=== PATIENT | male | born 1985 | race Caucasian/White ===

== ENCOUNTER 2016-05-09 05:04 | Emergency (ER) | payer MEDICAID, OTHER ==
[~2016-05-09] VITALS: Ht 172.7 cm; Wt 92.0 kg
[2016-05-09 05:10] VITALS: Ht 172.7 cm; Wt 92.0 kg
[2016-05-09] MEDS ORDERED: KETOROLAC 30 MG INJ IV STA (06:23)
[2016-05-09] MEDS ORDERED: ONDANSETRON 4 MG INJ IV STA (06:23)
[2016-05-09] MEDS ORDERED: SOD CHLORIDE 0.9% 1,000 ML IV STA (06:23)
--- NOTE | 2016-05-09 06:45 | ERD ---
ER Documentation Chief Complaint Date/Time DATE: 05/09/16 TIME: 06:44 Chief Complaint Flank pain sice 1700. pelvic pain dysuria and hematuria HPI 30-year-old male with history of kidney stones 5 years ago comes in with right- sided flank pain that was sudden and sharp around 5 AM. He states that it radiates to his right lower quadrant, associated with blood in his urine. He states that there is some difficulty when he tries to avoid, no burning with urination. He denies fevers or chills, vomiting. He reports mild nausea. ROS All systems reviewed and are negative except as per history of present illness. Medications Home Meds Active Scripts Tamsulosin Hcl* (Flomax*) 0.4 Mg Cap.er.24h, 0.4 MG PO BID, #30 CAP Prov:TERESA BAUTISTA PA-C 05/09/16 Hydrocodone/Acetaminophen ([place] 5-325 Tablet) 1 Each Tablet, 1 TAB PO Q6H Y for PAIN, #7 TAB Prov:TERESA BAUTISTA PA-C 05/09/16 Ondansetron (Ondansetron Odt) 4 Mg Tab.rapdis, 4 MG PO Q6H Y for NAUSEA AND/OR VOMITING, #10 TAB Prov:TERESA BAUTISTA PA-C 05/09/16 Ibuprofen* (Motrin*) 600 Mg Tab, 600 MG PO Q6, #30 TAB Prov:TERESA BAUTISTA PA-C 05/09/16 Allergies Allergies: Coded Allergies: Penicillins (Verified Allergy, Unknown, 05/09/16) PMhx/Soc Medical and Surgical Hx: pt denies Medical Hx, pt denies Surgical Hx History of Surgery: Yes (Appendectomy) Anesthesia Reaction: No Hx Neurological Disorder: No Hx Respiratory Disorders: No Hx Cardiac Disorders: No Hx Psychiatric Problems: No Hx Miscellaneous Medical Probl: No Hx Alcohol Use: Yes Hx Substance Use: Yes (THC smoke) Hx Tobacco Use: No Physical Exam Vitals Vital Signs Date Time Temp Pulse Resp B/P Pulse Ox O2 Delivery O2 Flow Rate FiO2 05/09/16 05:10 96.8 61 20 132/76 98 Physical Exam Const: [] Head: Atraumatic Eyes: Normal Conjunctiva ENT: Normal External Ears, Nose and Mouth. Neck: Full range of motion..~ No meningismus. Resp: Clear to auscultation bilaterally Cardio: Regular rate and rhythm, no murmurs Abd: Soft, non tender, non distended. Normal bowel sounds Skin: No petechiae or rashes Back: No midline or flank tenderness Ext: No cyanosis, or edema Neur: Awake and alert Psych: Normal Mood and Affect Result Diagram: 05/09/16 0700 05/09/16 0700 Results 24 hrs Laboratory Tests Test 05/09/16 07:00 White Blood Count 11.810^3/ul Red Blood Count 5.3310^6/ul Hemoglobin 15.9g/dl Hematocrit 48.1% Mean Corpuscular Volume 90.2fl Mean Corpuscular Hemoglobin 29.8pg Mean Corpuscular Hemoglobin Concent 33.1g/dl Red Cell Distribution Width 11.9% Platelet Count 80103^3/UL Mean Platelet Volume 10.8fl Neutrophils % 74.5% Lymphocytes % 19.4% Monocytes % 4.8% Eosinophils % 0.5% Basophils % 0.4% Nucleated Red Blood Cells % 0.0/100WBC Neutrophils # 8.810^3/ul Lymphocytes # 2.310^3/ul Monocytes # 0.610^3/ul Eosinophils # 0.110^3/ul Basophils # 0.110^3/ul Nucleated Red Blood Cells # 0.010^3/ul Urine Color LT. YELLOW Urine Clarity CLOUDY Urine pH 7.0 Urine Specific [place] 1.020 Urine Ketones NEGATIVE Urine Nitrite NEGATIVE Urine Bilirubin NEGATIVE Urine Urobilinogen 0.2 E.U./dL Urine Leukocyte Esterase NEGATIVE Urine Microscopic RBC 25-50/HPF Urine Microscopic WBC 2-5/HPF Urine Bacteria MODERATE Urine Hemoglobin 3+ Urine Glucose NEGATIVE% Urine Total Protein NEGATIVE Sodium Level 145mmol/L Potassium Level 4.3mmol/L Chloride Level 103mmol/L Carbon Dioxide Level 30mmol/L Anion Gap 16 Blood Urea Nitrogen 11mg/dl Creatinine 0.93mg/dl Glucose Level 110mg/dl Calcium Level 9.2mg/dl Total Bilirubin 0.1mg/dl Direct Bilirubin 0.00mg/dl Indirect Bilirubin 0.1mg/dl Aspartate Amino Transf (AST/SGOT) 15IU/L Alanine Aminotransferase (ALT/SGPT) 24IU/L Alkaline Phosphatase 56IU/L Total Protein 7.3g/dl Albumin 4.4g/dl Globulin 2.90g/dl Albumin/Globulin Ratio 1.51 Lipase 107U/L Current Medications Medications (Trade) Dose Ordered Sig/Marilee Route PRN Reason Start Time Stop Time Status Last Admin Dose Admin Sodium Chloride (NS) 1,000 ml @ 1,000 mls/hr Q1H STAT IV 05/09/16 06:23 05/09/16 07:22 DC 05/09/16 06:59 Ondansetron HCl (Zofran Inj) 4 mg ONCE STAT IV 05/09/16 06:23 05/09/16 06:25 DC 05/09/16 06:59 Ketorolac Tromethamine (Toradol) 30 mg ONCE STAT IV 05/09/16 06:23 05/09/16 06:25 DC 05/09/16 07:00 PROCEDURE: CT of the abdomen and pelvis without contrast CLINICAL INDICATION: Right flank pain. TECHNIQUE: Spiral CT images through the abdomen and pelvis without the use of contrast. The administered radiation dose is CTDI 16.67 and DLP 1052.45. One or more of the following dose reduction techniques were used: automated exposure control, adjustment of the mA and/or kV according to patient size, or use of iterative reconstruction technique. COMPARISON: None FINDINGS: Lack of oral and intravenous contrast somewhat limits evaluation. Slight dependent atelectasis of the lung bases is seen. No pleural effusion is seen. Minimal nonspecific ground-glass opacity of the lung bases. The liver, spleen, adrenals, and pancreas are unremarkable in appearance. The renal papillae are hyperdense bilaterally, consistent with dehydration or submillimeter stones. Tiny right renal cortical cyst is seen. A tiny 1 mm nonobstructing mid left kidney stone is seen. There is minimal right pelvicaliectasis. There is periureteric stranding about the proximal right ureter to the level of a 3 mm right ureter stone at the L4 level. No other stones are seen in either ureter or within the urinary bladder. The appendix is not seen. Multiple clips are seen adjacent to the cecum which may be from prior appendectomy.. The bladder and prostate are unremarkable in appearance. There is no evidence for diverticulitis. Calcified left lower quadrant node. There is no evidence for bowel obstruction, free air, or abscess. The aorta is normal in caliber. Minimal degenerative change of the spine. Small probable bone island of the right hip. IMPRESSION: 3 mm right ureter stone at the L4 level with mild periureteric stranding and minimal right pelvicaliectasis. Dense renal papillae consistent with dehydration or 7 mm stones and single tiny nonobstructing left renal stone.. RPTAT: HLBE Physician Vimal Date Time Electronically viewed and signed by Ana Simpson Physician on 05/09/2016 07 :32 Procedures/MDM ED course: Patient had an IV line established, blood and urine were obtained. He was given Toradol 30 mg and Zofran 4 mg IV. The patient's abdominal pain was reexamined. Patient was sitting comfortably with improved pain. Patient was not in any distress. MDM: 30-year-old male comes in with right-sided flank pain starting this morning , consistent with his presentation, CT scan showed a kidney stone that was 3 mm on the right side. Patient's workup including labs as well as the urine. He does not show evidence of renal insufficiency or infection. No evidence of gallstones, acute hepatobiliary process. Patient has a history of prior appendectomy consistent with the clips that were seen on the CT scan. He was given ER return precautions, given his history of recurrent kidney stones, I advised that the patient can further benefit from a urology reevaluation within the next week. Departure Diagnosis: Primary Impression: Kidney stones Condition: Good TERESA BAUTISTA PA-C May 09, 2016 06:45
[2016-05-09 07:03] LABS: ADD SCAN DIFF NO
[2016-05-09 07:07] LABS: ADD UMIC YES; URINE BILIRUBIN (Dip) NEGATIVE (NEGATIVE); URINE BLOOD (Dip) 3+ (NEGATIVE); URINE COLOR LT. YELLOW (YELLOW); URINE GLUCOSE (Dip) NEGATIVE (NEGATIVE); URINE KETONES (Dip) NEGATIVE (NEGATIVE); URINE LEUKOCYTE ESTERASE (Dip) NEGATIVE (NEGATIVE); URINE NITRITE (Dip) NEGATIVE (NEGATIVE); URINE TOTAL PROTEIN (Dip) NEGATIVE (NEGATIVE); URINE UROBILINOGEN (Dip) 0.2 E.U./dL (0.1-1.0)
[2016-05-09 07:08] LABS: BASOPHIL # 0.1 10^3/ul (0.0-0.1); BASOPHILS % 0.4 % (0.0-2.0); EOSINOPHILS # 0.1 10^3/ul (0.0-0.5); EOSINOPHILS % 0.5 % (0.0-7.0); HEMATOCRIT 48.1 % (42.0-52.0); HEMOGLOBIN 15.9 g/dl (14.0-18.0); LYMPHOCYTES # 2.3 10^3/ul (0.8-2.9); LYMPHOCYTES % 19.4 % (15.0-51.0); MEAN CORPUSCULAR HEMOGLOBIN 29.8 pg (29.0-33.0); MEAN CORPUSCULAR HGB CONC 33.1 g/dl (32.0-37.0); MEAN CORPUSCULAR VOLUME 90.2 fl (82.0-101.0); MEAN PLATELET VOLUME 10.8 fl (7.4-10.4); MONOCYTE # 0.6 10^3/ul (0.3-0.9); MONOCYTES % 4.8 % (0.0-11.0); NEUTROPHIL # 8.8 10^3/ul (1.6-7.5); NEUTROPHILS % 74.5 % (39.0-77.0); PLATELET COUNT 213 10^3/UL (140-415); RED BLOOD COUNT 5.33 10^6/ul (4.70-6.10); RED CELL DISTRIBUTION WIDTH 11.9 % (11.5-14.5); WHITE BLOOD COUNT 11.8 10^3/ul (4.8-10.8)
[2016-05-09 07:15] LABS: ALBUMIN 4.4 g/dl (3.3-4.9)
[2016-05-09 07:16] LABS: POTASSIUM 4.3 mmol/L (3.5-5.1)
[2016-05-09 07:18] LABS: ALBUMIN/GLOBULIN RATIO 1.51; BILIRUBIN,INDIRECT 0.1 mg/dl (0-1.1); BILIRUBIN,TOTAL 0.1 mg/dl (0.2-1.3); CALCIUM 9.2 mg/dl (8.4-10.2); CREATININE 0.93 mg/dl (0.61-1.24); TOTAL PROTEIN 7.3 g/dl (6.1-8.1)
[2016-05-09 07:28] LABS: BACTERIA,URINE MODERATE; URINE RBCS 25-50 /HPF (0)
--- NOTE | 2016-05-09 07:32 | RADRPT ---
PROCEDURE: CT of the abdomen and pelvis without contrast CLINICAL INDICATION: Right flank pain. TECHNIQUE: Spiral CT images through the abdomen and pelvis without the use of contrast. The admin istered radiation dose is CTDI 16.67 and DLP 1052.45. One or more of the following dose reduction t echniques were used: automated exposure control, adjustment of the mA and/or kV according to patient size, or use of iterative reconstruction technique. COMPARISON: None FINDINGS: Lack of oral and intravenous contrast somewhat limits evaluation. Slight dependent atelectasis of the lung bases is seen. No pleural effusion is seen. Minimal nonspecific ground-glass opacity of t he lung bases. The liver, spleen, adrenals, and pancreas are unremarkable in appearance. The renal papillae are hy perdense bilaterally, consistent with dehydration or submillimeter stones. Tiny right renal cortica l cyst is seen. A tiny 1 mm nonobstructing mid left kidney stone is seen. There is minimal right p elvicaliectasis. There is periureteric stranding about the proximal right ureter to the level of a 3 mm right ureter stone at the L4 level. No other stones are seen in either ureter or within the ur inary bladder. The appendix is not seen. Multiple clips are seen adjacent to the cecum which may b e from prior appendectomy.. The bladder and prostate are unremarkable in appearance. There is no ev idence for diverticulitis. Calcified left lower quadrant node. There is no evidence for bowel obst ruction, free air, or abscess. The aorta is normal in caliber. Minimal degenerative change of the spine. Small probable bone island of the right hip. IMPRESSION: 3 mm right ureter stone at the L4 level with mild periureteric stranding and minimal right pelvicali ectasis. Dense renal papillae consistent with dehydration or 7 mm stones and single tiny nonobstruc ting left renal stone.. RPTAT: HLBE Physician Vimal Date Time Electronically viewed and signed by Ana Simpson Physician on 05/09/2016 07:32 LE/
[2016-05-09] MEDS ORDERED: IBUP-1542 PO (07:58)
[2016-05-09] MEDS ORDERED: HYDR-906 PO (07:58)
[2016-05-09] MEDS ORDERED: ONDA4TAB14 PO (07:58)
[2016-05-09] MEDS ORDERED: TAMS-14 PO (07:58)
== END 2016-05-09 08:16 | disposition home or self-care (01) ==
LOC: FTE 05:04
DX: N20.0 Calculus of kidney (principal); R11.0 Nausea
CPT/HCPCS: 36415; 74176; 80053; 81001; 83690; 85025; 96374; 96375; J1885; J2405; J7030; Z7502; 81003

== ENCOUNTER 2016-05-11 00:25 | Emergency (ER) | payer MEDICAID ==
[~2016-05-11] VITALS: Ht 172.7 cm; Wt 96.0 kg
[~2016-05-11 00:25] MED LIST: HYDR-906 PO; IBUP-1542 PO; ONDA4TAB14 PO; TAMS-14 PO
[2016-05-11 00:28] VITALS: Ht 172.7 cm; Wt 96.0 kg
[2016-05-11] MEDS ORDERED: morphine 4 MG/ML VIAL IV STA (01:53)
[2016-05-11] MEDS ORDERED: KETOROLAC 30 MG INJ IV STA (01:53)
[2016-05-11] MEDS ORDERED: SOD CHLORIDE 0.9% 1,000 ML IV STA (01:53)
[2016-05-11] MEDS ORDERED: ONDANSETRON 4 MG INJ IV STA (01:53)
[2016-05-11 02:27] LABS: ADD SCAN DIFF NO
[2016-05-11 02:33] LABS: BASOPHIL # 0.1 10^3/ul (0.0-0.1); BASOPHILS % 0.5 % (0.0-2.0); EOSINOPHILS # 0.2 10^3/ul (0.0-0.5); EOSINOPHILS % 1.9 % (0.0-7.0); HEMATOCRIT 44.2 % (42.0-52.0); HEMOGLOBIN 14.5 g/dl (14.0-18.0); LYMPHOCYTES # 3.4 10^3/ul (0.8-2.9); LYMPHOCYTES % 32.9 % (15.0-51.0); MEAN CORPUSCULAR HEMOGLOBIN 30.1 pg (29.0-33.0); MEAN CORPUSCULAR HGB CONC 32.8 g/dl (32.0-37.0); MEAN CORPUSCULAR VOLUME 91.7 fl (82.0-101.0); MEAN PLATELET VOLUME 11.2 fl (7.4-10.4); MONOCYTE # 0.8 10^3/ul (0.3-0.9); MONOCYTES % 7.8 % (0.0-11.0); NEUTROPHIL # 5.8 10^3/ul (1.6-7.5); NEUTROPHILS % 56.6 % (39.0-77.0); PLATELET COUNT 201 10^3/UL (140-415); RED BLOOD COUNT 4.82 10^6/ul (4.70-6.10); WHITE BLOOD COUNT 10.2 10^3/ul (4.8-10.8)
[2016-05-11 02:36] LABS: ADD UMIC YES; URINE BILIRUBIN (Dip) NEGATIVE (NEGATIVE); URINE BLOOD (Dip) 3+ (NEGATIVE); URINE COLOR LT. YELLOW (YELLOW); URINE GLUCOSE (Dip) NEGATIVE (NEGATIVE); URINE KETONES (Dip) NEGATIVE (NEGATIVE); URINE LEUKOCYTE ESTERASE (Dip) NEGATIVE (NEGATIVE); URINE NITRITE (Dip) NEGATIVE (NEGATIVE); URINE TOTAL PROTEIN (Dip) TRACE (NEGATIVE); URINE UROBILINOGEN (Dip) 0.2 E.U./dL (0.1-1.0)
[2016-05-11 02:44] LABS: POTASSIUM 4.2 mmol/L (3.5-5.1)
[2016-05-11 02:47] LABS: CREATININE 0.87 mg/dl (0.61-1.24)
[2016-05-11 02:48] LABS: CALCIUM 9.1 mg/dl (8.4-10.2)
[2016-05-11 02:53] LABS: SQUAMOUS EPITHELIAL CELL,UR MANY; URINE RBCS >50 /HPF (0)
[2016-05-11 02:54] LABS: BACTERIA,URINE FEW
--- NOTE | 2016-05-11 03:02 | ERD ---
ER Documentation Chief Complaint Date/Time DATE: 05/11/16 TIME: 03:01 Chief Complaint right flank pain HPI 30-year-old male comes in with right-sided flank pain, was recently seen and evaluated by me 2 days ago for kidney stone and states that he has pain after running out of his medication. Patient states that he has been able to have normal urinary output and denies any hematuria, dysuria, urgency or frequency. He denies fevers or chills. Previously he was vomiting but states that he no longer reports nausea. His pain is in the right flank, sharp, intermittent. He has an appointment to see a urologist on Friday, and is here for pain medication until his appointment. ROS All systems reviewed and are negative except as per history of present illness. Medications Home Meds Active Scripts Sulfamethoxazole-Trimethoprim* (Bactrim* DS) 800-160 Mg Tab, 1 TAB PO BID for 5 Days, TAB Prov:TERESA BAUTISTA PA-C 05/11/16 Ibuprofen* (Motrin*) 600 Mg Tab, 600 MG PO Q6, #30 TAB Prov:TERESA BAUTISTA PA-C 05/11/16 Hydrocodone/Acetaminophen ([place] 5-325 Tablet) 1 Each Tablet, 1 TAB PO Q6H Y for PAIN, #20 TAB Prov:TERESA BAUTISTA PA-C 05/11/16 Tamsulosin Hcl* (Flomax*) 0.4 Mg Cap.er.24h, 0.4 MG PO BID, #30 CAP Prov:TERESA BAUTISTA PA-C 05/09/16 Hydrocodone/Acetaminophen ([place] 5-325 Tablet) 1 Each Tablet, 1 TAB PO Q6H Y for PAIN, #7 TAB Prov:TERESA BAUTISTA PA-C 05/09/16 Ondansetron (Ondansetron Odt) 4 Mg Tab.rapdis, 4 MG PO Q6H Y for NAUSEA AND/OR VOMITING, #10 TAB Prov:TERESA BAUTISTA PA-C 05/09/16 Ibuprofen* (Motrin*) 600 Mg Tab, 600 MG PO Q6, #30 TAB Prov:TERESA BAUTISTA PA-C 05/09/16 Allergies Allergies: Coded Allergies: Penicillins (Verified Allergy, Unknown, 05/09/16) PMhx/Soc History of Surgery: Yes (Appendectomy) Anesthesia Reaction: No Hx Neurological Disorder: No Hx Respiratory Disorders: No Hx Cardiac Disorders: No Hx Psychiatric Problems: No Hx Miscellaneous Medical Probl: Yes (kidney stones) Hx Alcohol Use: Yes Hx Substance Use: Yes (THC smoke) Hx Tobacco Use: Yes Smoking Status: Light tobacco smoker Physical Exam Vitals Vital Signs Date Time Temp Pulse Resp B/P Pulse Ox O2 Delivery O2 Flow Rate FiO2 05/11/16 00:28 97.8 87 20 134/80 100 Physical Exam General: Well-developed, well-nourished. The patient appears in no acute distress. HEENT: Head is normocephalic, atraumatic. No scleral icterus. Neck: Supple. Nontender. Lungs: Clear to auscultation. Normal air movement. Heart: Regular rate and rhythm. S1 and S2 are normal. No murmurs, gallops, or rubs. Abdomen: Soft, nontender, nondistended. Bowel sounds are normoactive. Extremities: No clubbing or cyanosis. Normal pulses. Moving extremities x 4. No weakness. Neurologic: Alert and oriented 3. No focal deficits. Skin: Normal turgor. No rash or lesions. Result Diagram: 05/11/16 0216 05/11/16 0216 Results 24 hrs Laboratory Tests Test 05/11/16 02:16 White Blood Count 10.210^3/ul Red Blood Count 4.8210^6/ul Hemoglobin 14.5g/dl Hematocrit 44.2% Mean Corpuscular Volume 91.7fl Mean Corpuscular Hemoglobin 30.1pg Mean Corpuscular Hemoglobin Concent 32.8g/dl Red Cell Distribution Width 12.0% Platelet Count 16340^3/UL Mean Platelet Volume 11.2fl Neutrophils % 56.6% Lymphocytes % 32.9% Monocytes % 7.8% Eosinophils % 1.9% Basophils % 0.5% Nucleated Red Blood Cells % 0.0/100WBC Neutrophils # 5.810^3/ul Lymphocytes # 3.410^3/ul Monocytes # 0.810^3/ul Eosinophils # 0.210^3/ul Basophils # 0.110^3/ul Nucleated Red Blood Cells # 0.010^3/ul Urine Color LT. YELLOW Urine Clarity CLOUDY Urine pH 6.0 Urine Specific [place] 1.025 Urine Ketones NEGATIVE Urine Nitrite NEGATIVE Urine Bilirubin NEGATIVE Urine Urobilinogen 0.2 E.U./dL Urine Leukocyte Esterase NEGATIVE Urine Microscopic RBC >50/HPF Urine Microscopic WBC 0-2/HPF Urine Squamous Epithelial Cells MANY Urine Amorphous Urates MANY Urine Bacteria FEW Urine Hemoglobin 3+ Urine Glucose NEGATIVE% Urine Total Protein TRACE Sodium Level 142mmol/L Potassium Level 4.2mmol/L Chloride Level 102mmol/L Carbon Dioxide Level 29mmol/L Anion Gap 15 Blood Urea Nitrogen 14mg/dl Creatinine 0.87mg/dl Glucose Level 85mg/dl Calcium Level 9.1mg/dl Current Medications Medications (Trade) Dose Ordered Sig/Marilee Route PRN Reason Start Time Stop Time Status Last Admin Dose Admin Sodium Chloride (NS) 1,000 ml @ 1,000 mls/hr Q1H STAT IV 05/11/16 01:53 05/11/16 02:52 DC 05/11/16 02:23 Morphine Sulfate (morphine) 4 mg ONCE STAT IV 05/11/16 01:53 05/11/16 01:54 DC 05/11/16 02:23 Ondansetron HCl (Zofran Inj) 4 mg ONCE STAT IV 05/11/16 01:53 05/11/16 01:54 DC 05/11/16 02:22 Ketorolac Tromethamine (Toradol) 30 mg ONCE STAT IV 05/11/16 01:53 05/11/16 01:54 DC 05/11/16 02:22 Procedures/MDM ED course: Patient was given fluid bolus of normal saline 1 L, morphine 4 mg, Toradol 30 mg , Zofran 4 mg IV. Blood and urine were obtained. The patient's abdominal pain was reexamined. Patient was sitting comfortably with improved pain. Patient was not in any distress. MDM: 30-year-old male presents with ureteral colic, comes in for pain control secondary to history of kidney stone recently diagnosed on CT scan 2 days ago. This patient's pain was controlled with morphine, Toradol in the emergency department. His labs are reviewed, there is no leukocytosis, acute kidney injury or signs of infection. Patient states that his follow-up with a urologist is on Friday, I believe it is reasonable to continue his pain medications including [place] and ibuprofen until Friday so he will be able to have pain control at home until he sees a urologist. Departure Diagnosis: Primary Impression: Kidney stone Condition: TERESA Flood PA-C May 11, 2016 03:02
[2016-05-11] MEDS ORDERED: HYDR-906 PO (03:05)
[2016-05-11] MEDS ORDERED: IBUP-1542 PO (03:06)
[2016-05-11] MEDS ORDERED: BACTDS PO (03:09)
[2016-05-11 03:21] VITALS: BP 101/55; PULSE 57; RESP 18; TEMP 97.7
== END 2016-05-11 03:30 | disposition home or self-care (01) ==
LOC: FTE 00:25
DX: N20.0 Calculus of kidney (principal)
CPT/HCPCS: 36415; 80048; 81001; 85025; 96374; 96375; J1885; J2270; J2405; J7030; Z7502; 81003

== ENCOUNTER 2016-05-14 00:34 | Emergency (ER) | payer MEDICAID ==
[~2016-05-14] VITALS: Ht 177.8 cm; Wt 92.0 kg
[~2016-05-14 00:34] MED LIST changes: +BACTDS PO
[2016-05-14 00:36] VITALS: Ht 177.8 cm; Wt 92.0 kg
[2016-05-14] MEDS ORDERED: ONDANSETRON (ODT) 4 MG TAB ODT STA (01:51)
[2016-05-14 01:59] LABS: URINE BLOOD (Dip) POC 3+ (NEGATIVE)
[2016-05-14] MEDS ORDERED: PHENAZOPYRIDINE 100 MG TAB PO ONE (02:00)
[2016-05-14] MEDS ORDERED: morphine 10 MG INJ IM ONE (02:00)
[2016-05-14] MEDS ORDERED: PHEN-538 PO (02:05)
--- NOTE | 2016-05-14 02:05 | ERD ---
ER Documentation Chief Complaint Date/Time DATE: 05/14/16 TIME: 02:02 Chief Complaint right flank pain on and off x 1 week HPI 30-year-old male presents here in emergency department for continuous right flank pain for one week now, patient was seen here twice in the last 5 days for renal colic, patient has a kidney stone in the ureter, patient denies any fever or chills. Patient has an appointment with urology specialist in 2 days, patient has been taking Vanderbilt for pain with only mild relief. Patient denies any nausea or vomiting. Patient denies sadiq hematuria. Patient denies any dizziness. She denies any abdominal pain at this time. Patient describes the right flank pain as sharp pain, 8/10 scale, is worse upon urination. ROS All systems reviewed and are negative except as per history of present illness. Medications Home Meds Active Scripts Sulfamethoxazole-Trimethoprim* (Bactrim* DS) 800-160 Mg Tab, 1 TAB PO BID for 5 Days, TAB Prov:TERESA BAUTISTA PA-C 05/11/16 Ibuprofen* (Motrin*) 600 Mg Tab, 600 MG PO Q6, #30 TAB Prov:TERESA BAUTISTA PA-C 05/11/16 Hydrocodone/Acetaminophen ([place] 5-325 Tablet) 1 Each Tablet, 1 TAB PO Q6H Y for PAIN, #20 TAB Prov:TERESA BAUTISTA PA-C 05/11/16 Tamsulosin Hcl* (Flomax*) 0.4 Mg Cap.er.24h, 0.4 MG PO BID, #30 CAP Prov:TERESA BAUTISTA PA-C 05/09/16 Hydrocodone/Acetaminophen ([place] 5-325 Tablet) 1 Each Tablet, 1 TAB PO Q6H Y for PAIN, #7 TAB Prov:TERESA BAUTISTA PA-C 05/09/16 Ondansetron (Ondansetron Odt) 4 Mg Tab.rapdis, 4 MG PO Q6H Y for NAUSEA AND/OR VOMITING, #10 TAB Prov:TERESA BAUTISTA PA-C 05/09/16 Ibuprofen* (Motrin*) 600 Mg Tab, 600 MG PO Q6, #30 TAB Prov:TERESA BAUTISTA PA-C 05/09/16 Allergies Allergies: Coded Allergies: Penicillins (Verified Allergy, Unknown, 05/09/16) PMhx/Soc History of Surgery: Yes (Appendectomy) Anesthesia Reaction: No Hx Neurological Disorder: No Hx Respiratory Disorders: No Hx Cardiac Disorders: No Hx Psychiatric Problems: No Hx Miscellaneous Medical Probl: Yes (kidney stones) Hx Alcohol Use: Yes Hx Substance Use: Yes (THC smoke) Hx Tobacco Use: Yes Smoking Status: Never smoker FmHx Family History: No coronary disease, No diabetes, No other Physical Exam Vitals Vital Signs Date Time Temp Pulse Resp B/P Pulse Ox O2 Delivery O2 Flow Rate FiO2 05/14/16 00:36 98.3 75 20 120/68 100 Physical Exam GENERAL: The patient is well developed and appropriate for usual state of health, in no apparent distress. CHEST: Clear to auscultation bilaterally. There are no rales, wheezes or rhonchi. HEART: Regular rate and rhythm. No murmurs, clicks, rubs or gallops. No S3 or S4. ABDOMEN: Soft, nontender and nondistended. Good bowel sounds. No rebound or guarding. No gross peritonitis. No gross organomegaly or masses. No Esteban sign or McBurney point tenderness. BACK: No midline or flank tenderness. EXTREMITIES: Equal pulses bilaterally. There is no peripheral clubbing, cyanosis or edema. No focal swelling or erythema. Full range of motion. Grossly neurovascularly intact. NEURO: Alert and oriented. Cranial nerves 2-12 intact. Motor strength in all 4 extremities with 5/5 strength. Sensation grossly intact. Normal speech and gait. SKIN: There is no apparent rash or petechia. The skin is warm and dry. HEMATOLOGIC AND LYMPHATIC: There is no evidence of excessive bruising or lymphedema. No gross cervical, axillary, or inguinal lymphadenopathy. Results 24 hrs Laboratory Tests Test 05/14/16 01:58 Bedside Urine pH (LAB) 6.0 Bedside Urine Protein (LAB) Negative Bedside Urine Glucose (UA) Negative Bedside Urine Ketones (LAB) Negative Bedside Urine Blood 3+ Bedside Urine Nitrite (LAB) Negative Bedside Urine Leukocyte Esterase (L Negative Current Medications Medications (Trade) Dose Ordered Sig/Marilee Route PRN Reason Start Time Stop Time Status Last Admin Dose Admin Morphine Sulfate (morphine) 6 mg ONCE ONCE IM 05/14/16 02:00 05/14/16 02:01 DC Ondansetron HCl (Zofran Odt) 4 mg ONCE STAT ODT 05/14/16 01:51 05/14/16 01:53 DC Phenazopyridine HCl (Pyridium) 200 mg ONCE ONCE PO 05/14/16 02:00 05/14/16 02:01 DC Patient was given medication for pain here in emergency department, after treatment, patient verbalized feeling much better. Patient's pain is improved. Zofran was given to prevent vomiting. Reviewed CT scan done 5 days ago, see below. PROCEDURE: CT of the abdomen and pelvis without contrast CLINICAL INDICATION: Right flank pain. TECHNIQUE: Spiral CT images through the abdomen and pelvis without the use of contrast. The administered radiation dose is CTDI 16.67 and DLP 1052.45. One or more of the following dose reduction techniques were used: automated exposure control, adjustment of the mA and/or kV according to patient size, or use of iterative reconstruction technique. COMPARISON: None FINDINGS: Lack of oral and intravenous contrast somewhat limits evaluation. Slight dependent atelectasis of the lung bases is seen. No pleural effusion is seen. Minimal nonspecific ground-glass opacity of the lung bases. The liver, spleen, adrenals, and pancreas are unremarkable in appearance. The renal papillae are hyperdense bilaterally, consistent with dehydration or submillimeter stones. Tiny right renal cortical cyst is seen. A tiny 1 mm nonobstructing mid left kidney stone is seen. There is minimal right pelvicaliectasis. There is periureteric stranding about the proximal right ureter to the level of a 3 mm right ureter stone at the L4 level. No other stones are seen in either ureter or within the urinary bladder. The appendix is not seen. Multiple clips are seen adjacent to the cecum which may be from prior appendectomy.. The bladder and prostate are unremarkable in appearance. There is no evidence for diverticulitis. Calcified left lower quadrant node. There is no evidence for bowel obstruction, free air, or abscess. The aorta is normal in caliber. Minimal degenerative change of the spine. Small probable bone island of the right hip. IMPRESSION: 3 mm right ureter stone at the L4 level with mild periureteric stranding and minimal right pelvicaliectasis. Dense renal papillae consistent with dehydration or 7 mm stones and single tiny nonobstructing left renal stone.. RPTAT: HLBE Ana Simpson Physician Date Time Electronically viewed and signed by Ana Simpson, Physician on 05/09/2016 07 :32 LE/ CC: TERESA BAUTISTA PA-C Procedures/MDM Medical decision making: Patient's symptoms of phlebitis consistent with renal colic, patient had a CT scan of the abdomen and pelvis done in the last 5 days, repeat CT scan is not necessary at this time, no symptoms of an infected stone, urine tests does not show any infection, only shows +3 blood, consistent with renal colic, patient already has an appointment with urology specialist in 3 days, is advised to go to the appointment, no symptoms of any sepsis at this time, patient does not have any fever. Patient appears well and is hemodynamically stable. Abdominal exam is normal. Also patient has not been taking pain medications, Vanderbilt home as frequent as prescribed, patient was advised to take this, also added prescription for Pyridium to help with symptoms. Patient was advised to return to emergency department for any worsening symptoms, high fever, uncontrolled severe pain, or any other worsening symptoms. Departure Diagnosis: Primary Impression: Renal colic Condition: Stable Patient Instructions: Kidney Stone W/ Colic TONYA NELSON NP May 14, 2016 02:05
== END 2016-05-14 03:02 | disposition home or self-care (01) ==
LOC: FTE 00:34
DX: N23 Unspecified renal colic (principal); Z87.891 Personal history of nicotine dependence
CPT/HCPCS: 81003; 96372; J2270; Z7502; Z7610

== ENCOUNTER 2016-08-06 14:04 | Emergency (ER) | payer MEDICAID, OTHER ==
[~2016-08-06] VITALS: Ht 172.7 cm; Wt 85.0 kg
[~2016-08-06 14:04] MED LIST changes: +PHEN-538 PO
[2016-08-06 14:07] VITALS: Ht 172.7 cm; Wt 85.0 kg
--- NOTE | 2016-08-06 14:16 | ERA ---
ER Documentation Chief Complaint Date/Time DATE: 08/06/16 TIME: 14:16 Chief Complaint Anxiety HPI The patient is a 30-year-old male, resenting to the ER because of acute anxiety attack, feeling jittery and twitching of the body of the doing cocaine and amphetamine last night 9 PM at the [employer]. He denies homicidal, suicidal ideation, hallucination. He denies neck pain, chest pain, abdominal pain, vomiting, dysuria, diarrhea, constipation. He denies smoking or drinking Past medical history: Kidney stone Past surgical history: None ROS All systems reviewed and are negative except as per history of present illness. Medications Home Meds Discontinued Scripts Phenazopyridine Hcl* (Pyridium*) 200 Mg Tab, 200 MG PO TID Y for URINARY PAIN, # 6 TAB Prov:TONYA NELSON NP 05/14/16 Sulfamethoxazole-Trimethoprim* (Bactrim* DS) 800-160 Mg Tab, 1 TAB PO BID for 5 Days, TAB Prov:TERESA BAUTISTA PA-C 05/11/16 Ibuprofen* (Motrin*) 600 Mg Tab, 600 MG PO Q6, #30 TAB Prov:TERESA BAUTISTA PA-C 05/11/16 Hydrocodone/Acetaminophen ([place] 5-325 Tablet) 1 Each Tablet, 1 TAB PO Q6H Y for PAIN, #20 TAB Prov:TERESA BAUTISTA PA-C 05/11/16 Tamsulosin Hcl* (Flomax*) 0.4 Mg Cap.er.24h, 0.4 MG PO BID, #30 CAP Prov:TERESA BAUTISTA PA-C 05/09/16 Hydrocodone/Acetaminophen ([place] 5-325 Tablet) 1 Each Tablet, 1 TAB PO Q6H Y for PAIN, #7 TAB Prov:TERESA BAUTISTA PA-C 05/09/16 Ondansetron (Ondansetron Odt) 4 Mg Tab.rapdis, 4 MG PO Q6H Y for NAUSEA AND/OR VOMITING, #10 TAB Prov:TERESA BAUTISTA PA-C 05/09/16 Ibuprofen* (Motrin*) 600 Mg Tab, 600 MG PO Q6, #30 TAB Prov:TERESA BAUTISTA PA-C 05/09/16 Allergies Allergies: Coded Allergies: Penicillins (Verified Allergy, Unknown, 08/06/16) PMhx/Soc History of Surgery: Yes (Appendectomy) Anesthesia Reaction: No Hx Neurological Disorder: No Hx Respiratory Disorders: No Hx Cardiac Disorders: No Hx Psychiatric Problems: No Hx Miscellaneous Medical Probl: Yes (kidney stones) Hx Alcohol Use: Yes Hx Substance Use: Yes (THC smoke) Hx Tobacco Use: Yes Physical Exam Vitals Vital Signs Date Time Temp Pulse Resp B/P Pulse Ox O2 Delivery O2 Flow Rate FiO2 08/06/16 16:22 97.4 107 18 112/70 100 Room Air 08/06/16 14:30 0 08/06/16 14:24 93 18 116/63 100 Room Air 08/06/16 14:07 97.4 114 18 134/70 96 Physical Exam Const: No acute distress. Head: Atraumatic. Eyes: Normal Conjunctiva. ENT: Normal External Ears, Nose and Mouth. Neck: Full range of motion. No meningismus. Resp: Clear to auscultation bilaterally. Cardio: Regular tachycardic Abd: Soft, non distended, normal bowel sounds, non tender. Skin: No petechiae or rashes. Back: No midline or flank tenderness. Ext: No cyanosis, or edema. Neur: Awake and alert. No focal deficit Psych: Normal Mood and Affect. Result Diagram: 08/06/16 1430 08/06/16 1430 Results 24 hrs Laboratory Tests Test 08/06/16 14:30 White Blood Count 7.510^3/ul Red Blood Count 4.8710^6/ul Hemoglobin 14.6g/dl Hematocrit 42.7% Mean Corpuscular Volume 87.7fl Mean Corpuscular Hemoglobin 30.0pg Mean Corpuscular Hemoglobin Concent 34.2g/dl Red Cell Distribution Width 12.0% Platelet Count 60499^3/UL Mean Platelet Volume 10.9fl Neutrophils % 71.2% Lymphocytes % 19.8% Monocytes % 7.6% Eosinophils % 0.7% Basophils % 0.4% Nucleated Red Blood Cells % 0.0/100WBC Neutrophils # 5.410^3/ul Lymphocytes # 1.510^3/ul Monocytes # 0.610^3/ul Eosinophils # 0.110^3/ul Basophils # 0.010^3/ul Nucleated Red Blood Cells # 0.010^3/ul Prothrombin Time 13.1Sec Prothrombin Time Ratio 1.0 INR International Normalized Ratio 0.99 Activated Partial Thromboplast Time 27.8Sec Sodium Level 138mmol/L Potassium Level 3.3mmol/L Chloride Level 100mmol/L Carbon Dioxide Level 27mmol/L Anion Gap 14 Blood Urea Nitrogen 10mg/dl Creatinine 0.86mg/dl Glucose Level 118mg/dl Calcium Level 9.5mg/dl Troponin I < 0.012ng/ml Urine Opiates Screen Negative Urine Barbiturates Negative Urine Amphetamines Screen POSITIVE Urine Benzodiazepines Screen Negative Urine Cocaine Screen Negative Urine Cannabinoids Positive Ethyl Alcohol Level < 10.0mg/dl Current Medications Medications (Trade) Dose Ordered Sig/Marilee Route PRN Reason Start Time Stop Time Status Last Admin Dose Admin Sodium Chloride (NS) 1,000 ml @ 1,000 mls/hr Q1H STAT IV 08/06/16 14:27 08/06/16 15:26 DC 08/06/16 14:42 Lorazepam (Ativan) 1 mg ONCE ONCE IV 08/06/16 14:30 08/06/16 14:31 DC 08/06/16 14:42 Potassium Chloride (Klor-Con 20) 40 meq ONCE STAT PO 08/06/16 15:48 08/06/16 15:52 DC 08/06/16 16:17 Procedures/MDM MEDICAL MAKING DECISION: The patient is a 30-year-old male, presenting with acute anxiety, acute dehydration, acute hypokalemia. He was treated 1 L normal saline for acute dehydration, given 1 mg IV for acute anxiety, potassium chloride 40 mEq p.o. for low potassium The differential diagnoses considered include but are not limited to drug- induced psychosis, psychosis, anxiety attack, panic attack Departure Diagnosis: Primary Impression: Anxiety attack Additional Impressions: Dehydration Polysubstance abuse Hypokalemia Condition: Good Comments I discussed the findings with the patient. I advised the patient to follow-up with the primary physician in about 1-2 days, sooner if needed and return if any concern. The patient's blood pressure was elevated (>120/80) but appears stable without evidence of hypertension emergency or urgency. The patient was counseled about the risks of hypertension and urged to pursue outpatient monitoring and therapy within a week with their primary care physician. ERIN CAMPUZANO MD Aug 06, 2016 14:16
[2016-08-06] MEDS ORDERED: SOD CHLORIDE 0.9% 1,000 ML IV STA (14:27)
[2016-08-06] MEDS ORDERED: LORAZEPAM 2 MG INJ IV ONE (14:30)
[2016-08-06 14:42] LABS: ADD SCAN DIFF NO
[2016-08-06 14:45] LABS: BASOPHILS % 0.4 % (0.0-2.0); EOSINOPHILS # 0.1 10^3/ul (0.0-0.5); EOSINOPHILS % 0.7 % (0.0-7.0); HEMATOCRIT 42.7 % (42.0-52.0); HEMOGLOBIN 14.6 g/dl (14.0-18.0); LYMPHOCYTES # 1.5 10^3/ul (0.8-2.9); LYMPHOCYTES % 19.8 % (15.0-51.0); MEAN CORPUSCULAR HGB CONC 34.2 g/dl (32.0-37.0); MEAN CORPUSCULAR VOLUME 87.7 fl (82.0-101.0); MEAN PLATELET VOLUME 10.9 fl (7.4-10.4); MONOCYTE # 0.6 10^3/ul (0.3-0.9); MONOCYTES % 7.6 % (0.0-11.0); NEUTROPHIL # 5.4 10^3/ul (1.6-7.5); NEUTROPHILS % 71.2 % (39.0-77.0); PLATELET COUNT 203 10^3/UL (140-415); RED BLOOD COUNT 4.87 10^6/ul (4.70-6.10); WHITE BLOOD COUNT 7.5 10^3/ul (4.8-10.8)
--- NOTE | 2016-08-06 15:00 | RADRPT ---
PROCEDURE: Chest Radiograph. CLINICAL INDICATION: Chest pain TECHNIQUE: Single frontal chest radiograph. COMPARISON: None available FINDINGS: The cardiomediastinal silhouette is within normal limits. No infiltrate or effusion is seen. Th e bones are intact. IMPRESSION: 1. Unremarkable chest radiograph. RPTAT: KK .Danny Tinajero MD, MD Date Time Electronically viewed and signed by .aDnny Tinajero MD, on 08/06/2016 14:59 .B/
[2016-08-06 15:02] LABS: INR 0.99; PROTIME 13.1 Sec (12.2-14.2)
[2016-08-06 15:03] LABS: PARTIAL THROMBOPLASTIN TIME 27.8 Sec (25.0-35.0)
[2016-08-06 15:07] LABS: ANION GAP 14 (8-16); BLOOD UREA NITROGEN 10 mg/dl (7-20); CALCIUM 9.5 mg/dl (8.4-10.2); CARBON DIOXIDE 27 mmol/L (21-31); CHLORIDE 100 mmol/L (97-110); CREATININE 0.86 mg/dl (0.61-1.24); GLUCOSE 118 mg/dl (70-220); POTASSIUM 3.3 mmol/L (3.5-5.1); SODIUM 138 mmol/L (135-144)
[2016-08-06 15:32] LABS: TROPONIN-I < 0.012 ng/ml (0.00-0.12)
[2016-08-06 15:33] LABS: BARBITURATES Negative (NEGATIVE); BENZODIAZEPINES Negative (NEGATIVE); CANNABINOIDS Positive (NEGATIVE); COCAINE Negative (NEGATIVE); OPIATES Negative (NEGATIVE)
[2016-08-06] MEDS ORDERED: POTASSIUM CHLORIDE (SR) 20 MEQ TAB PO STA (15:48)
[2016-08-06 16:22] VITALS: BP 112/70; PULSE 107; RESP 18; TEMP 97.4
== END 2016-08-06 16:23 | disposition home or self-care (01) ==
LOC: E/R 14:04
DX: F41.9 Anxiety disorder, unspecified (principal); E86.0 Dehydration; F14.10 Cocaine abuse, uncomplicated; F15.10 Other stimulant abuse, uncomplicated; E87.6 Hypokalemia; R07.9 Chest pain, unspecified; Z87.891 Personal history of nicotine dependence
CPT/HCPCS: 36415; 71010; 80048; 80306; 80307; 84484; 85025; 85610; 85730; 93005; 96374; J2060; J7030; Z7502; Z7610

== ENCOUNTER 2017-01-27 17:16 | Emergency (ER) | payer MEDICAID ==
[~2017-01-27] VITALS: Ht 172.7 cm; Wt 90.0 kg
[2017-01-27 17:43] VITALS: Ht 172.7 cm; Wt 90.0 kg
[2017-01-27] MEDS ORDERED: IBUPROFEN 600 MG TAB PO ONE (21:30)
[2017-01-27] MEDS ORDERED: ACETAMINOPHEN 325 MG TAB PO ONE (21:30)
[2017-01-27] MEDS ORDERED: CETI10CA PO (21:34)
[2017-01-27] MEDS ORDERED: ACET500C5 PO (21:34)
[2017-01-27] MEDS ORDERED: GUAI120S26 PO (21:34)
[2017-01-27] MEDS ORDERED: IBUP-1542 PO (21:34)
[2017-01-27] MEDS ORDERED: OSLT75C PO (21:34)
--- NOTE | 2017-01-27 21:38 | ERD ---
ER Documentation Chief Complaint Chief Complaint cold symptoms x 2 days HPI 31-year-old male presents here in emergency department for complaints of cough runny nose nasal congestion that started 2 days ago. Patient has been having dry cough, does not cough up any phlegm or blood. Patient does not have any shortness of breath or wheezing. Patient has been having runny nose nasal congestion with clear nasal discharge. Patient does not complain of sore throat or ear pain. Patient does not have any sick contacts. ROS All systems reviewed and are negative except as per history of present illness. Medications Home Meds Active Scripts Acetaminophen* (Tylophen*) 500 Mg Capsule, 1 CAP PO Q6H Y for PAIN AND OR ELEVATED TEMP, #20 CAP Prov:TONYA NELSON NP 01/27/17 Ibuprofen* (Motrin*) 600 Mg Tab, 600 MG PO Q6H Y for PAIN AND OR ELEVATED TEMP, #30 TAB Prov:TONYA NELSON NP 01/27/17 Cetirizine Hcl* (Zyrtec*) 10 Mg Capsule, 10 MG PO DAILY, #30 TAB.CHEW Prov:TONYA NELSON NP 01/27/17 Uttcwzsogkg-H-Pgvmitogyj Hb* (Guaifenesin* DM Syrup) 120 Ml Syrup, 10 ML PO Q4H Y for COUGH, #120 ML Prov:TONYA NELSON NP 01/27/17 Oseltamivir Phosphate* (Tamiflu*) 75 Mg Capsule, 75 MG PO BID for 5 Days, CAP Prov:TONYA NELSON NP 01/27/17 Allergies Allergies: Coded Allergies: Penicillins (Verified Allergy, Unknown, 08/06/16) PMhx/Soc Medical and Surgical Hx: pt denies Medical Hx, pt denies Surgical Hx History of Surgery: Yes (Appendectomy) Anesthesia Reaction: No Hx Neurological Disorder: No Hx Respiratory Disorders: No Hx Cardiac Disorders: No Hx Psychiatric Problems: No Hx Miscellaneous Medical Probl: Yes (kidney stones) Hx Alcohol Use: Yes Hx Substance Use: Yes (THC smoke) Hx Tobacco Use: Yes Smoking Status: Current every day smoker FmHx Family History: No coronary disease, No diabetes, No other Physical Exam Vitals Vital Signs Date Time Temp Pulse Resp B/P Pulse Ox O2 Delivery O2 Flow Rate FiO2 01/27/17 21:45 99.5 01/27/17 17:43 102.3 93 18 125/70 97 Physical Exam GENERAL: The patient is well developed and appropriate for usual state of health, in no apparent distress. HEENT: Atraumatic. Ears: Normal tympanic membrane, no erythema or bulging. No ear canal swelling. No ear discharge. Nose: Edematous nasal turbinates with clear nasal disc. Throat: oropharynx erythematous with postnasal drip. No tonsillar swelling or tonsillar exudates. No lymphadenopathy. CHEST: Clear to auscultation bilaterally. There are no rales, wheezes or rhonchi. HEART: Regular rate and rhythm. No murmurs, clicks, rubs or gallops. No S3 or S4. ABDOMEN: Soft, nontender and nondistended. Good bowel sounds. No rebound or guarding. No gross peritonitis. No gross organomegaly or masses. No Esteban sign or McBurney point tenderness. BACK: No midline or flank tenderness. EXTREMITIES: Equal pulses bilaterally. There is no peripheral clubbing, cyanosis or edema. No focal swelling or erythema. Full range of motion. Grossly neurovascularly intact. NEURO: Alert and oriented. Cranial nerves 2-12 intact. Motor strength in all 4 extremities with 5/5 strength. Sensation grossly intact. Normal speech and gait. SKIN: There is no apparent rash or petechia. The skin is warm and dry. HEMATOLOGIC AND LYMPHATIC: There is no evidence of excessive bruising or lymphedema. No gross cervical, axillary, or inguinal lymphadenopathy. Results 24 hrs Current Medications Medications (Trade) Dose Ordered Sig/Marilee Route PRN Reason Start Time Stop Time Status Last Admin Dose Admin Ibuprofen (Motrin) 600 mg ONCE ONCE PO 01/27/17 21:30 01/27/17 21:31 DC 01/27/17 21:19 Acetaminophen (Tylenol Tab) 650 mg ONCE ONCE PO 01/27/17 21:30 01/27/17 21:31 DC 01/27/17 21:19 Patient was given medicines for fever control here in the emergency department. After treatment, patient temperature improved and lower. Patient appears well and is hemodynamically stable. Procedures/MDM Medical Decision Making: Patient symptoms are most likely consistent with influenza. There is low suspicion for Pneumonia at this time since patients lungs sounds are clear, patient O2 saturation is normal and patient doesnt show any respiratory distress. Radiology exams not indicated at this time. There is low suspicion for other cardiopulmonary emergencies at this time such as CHF, Pulmonary Embolism, Pneumothorax, Aortic Aneurysm or any other cardiopulmonary emergencies at this time. There is low suspicion for sepsis. Patient appears well and is hemodynamically stable. Fever is controlled with medicines. Disposition: Home. Condition: Stable Prescriptions: Tylenol ibuprofen Zyrtec with Guaifenesin DM Tamiflu Instructions: Patient is advised to take medications as prescribed. Patient is advised to rest. Patient advised to increase fluid intake, do humidifier at home and if possible, do salt water gargles. Patient is advised that if symptoms are worse, shortness of breath, uncontrolled fever, stridor, vomiting, worst signs and symptoms to return to emergency department immediately. Otherwise, patient is advised to follow up with primary doctor in 5-7 days. Disclaimer: Inadvertent spelling and grammatical errors are likely due to EHR/ dictation software use and do not reflect on the overall quality of patient care. Also, please note that the electronic time recorded on this note does not necessarily reflect the actual time of the patient encounter. Departure Diagnosis: Primary Impression: Flu-like symptoms Condition: Stable Patient Instructions: Influenza (Adult) TONYA NELSON NP Jan 27, 2017 21:38
[2017-01-27 21:45] VITALS: TEMP 99.5
== END 2017-01-27 21:45 | disposition home or self-care (01) ==
LOC: FTE 17:16
DX: R05 Cough (principal); R09.89 Other specified symptoms and signs involving the circulatory and respiratory systems; R09.81 Nasal congestion; F17.210 Nicotine dependence, cigarettes, uncomplicated
CPT/HCPCS: Z7502; Z7610; 99283